=== PATIENT | male | born 1990 | race Caucasian/White ===

== ENCOUNTER 2021-04-13 12:11 | Emergency (ER) | payer MEDICARE, MEDICAID ==
[~2021-04-13] VITALS: Ht 167.6 cm; Wt 80.1 kg
[2021-04-13 12:15] VITALS: BP 125/84
== END 2021-04-13 13:44 | disposition home or self-care (01) ==
LOC: M.ERS 12:11
DX: S01.111A Laceration without foreign body of right eyelid and periocular area, initial encounter (principal); F84.0 Autistic disorder; W19.XXXA Unspecified fall, initial encounter; Y93.89 Activity, other specified; Y92.89 Other specified places as the place of occurrence of the external cause; Y99.8 Other external cause status